=== PATIENT | male | born 1975 | race Caucasian/White ===

== ENCOUNTER → 2016-07-25 | Outpatient (CLI) | payer BC ==
[~2016-07-25] MED LIST: ASPI-461 PO; DIAZ-165 PO; GLC500 PO; LSN5 PO; SERT50TA PO; ZNTT/150 PO; [UNRECOGNIZED DRUG - REMARK] PO
--- NOTE | 2016-07-25 15:02 | DIAGNOSTIC IMAGING REPORT ---
THORACIC SPINE 3 VIEWS HISTORY: Chronic thoracic back pain. COMPARISON: None. FINDINGS: There is no fracture. No subluxation. Mild disc space narrowing within the majority of the thoracic spine. Paraspinal soft tissues are unremarkable. IMPRESSION: No fracture or subluxation within the thoracic spine. Mild degenerative disease. Electronically signed by: Gerard Soares M.D. 07/25/2016 2:59 PM Dictated Date/Time: 07/25/2016 2:57 PM
--- NOTE | 2016-07-25 15:03 | DIAGNOSTIC IMAGING REPORT ---
CERVICAL SPINE 5 VIEWS HISTORY: Neck pain. COMPARISON: None. FINDINGS: The cervical spine is visualized from C1 through the superior endplate of C7. Straightening of the cervical spine. No significant neural foraminal narrowing.. There is no fracture. No subluxation. Disc spaces are preserved. Prevertebral soft tissues and the atlantodens interval are intact. IMPRESSION: No fracture or subluxation within the cervical spine. Straightening of the cervical spine. Electronically signed by: Gerard Soares M.D. 07/25/2016 3:01 PM Dictated Date/Time: 07/25/2016 2:59 PM
== END | disposition home or self-care (01) ==
LOC: C.RAD 14:26
PROVIDERS: ATTEND Family Medicine
DX: M54.6 Pain in thoracic spine (principal)

== ENCOUNTER 2016-08-20 19:16 | Emergency (ER) | payer BC ==
[~2016-08-20] VITALS: Ht 182.9 cm; Wt 110.0 kg
[2016-08-20 19:16] VITALS: BP 130/91; PULSE 85; TEMP 36.6; O2SAT 100; Ht 182.9 cm; Wt 110.0 kg
[~2016-08-20 19:16] MED LIST changes: -ASPI-461 PO; -DIAZ-165 PO; -GLC500 PO; -LSN5 PO; -[UNRECOGNIZED DRUG - REMARK] PO
[2016-08-20] MEDS ORDERED: ASPI-461 PO (19:40)
[2016-08-20] MEDS ORDERED: GLC500 PO (19:40)
[2016-08-20] MEDS ORDERED: DIAZEPAM 5MG TAB PO STA (19:46)
[2016-08-20] MEDS ORDERED: HYDROmorphone INJ 0.5 MG/0.5 ML SYR IV STA (19:46)
[2016-08-20] MEDS ORDERED: KETOROLAC TROMETHAMINE 30 MG/ML VIAL IV STA (19:46)
[2016-08-20] MEDS ORDERED: [UNRECOGNIZED DRUG - REMARK] PO (19:55)
[2016-08-20] MEDS ORDERED: LSN5 PO (20:25)
--- NOTE | 2016-08-20 20:50 | DIAGNOSTIC IMAGING REPORT ---
THORACIC SPINE 3 VIEWS CLINICAL HISTORY: Thoracic back pain. FINDINGS: AP, lateral, and swimmer's views of the thoracic spine are compared to study dated 07/25/2016. The skeletal structures are well mineralized. There is no radiographic evidence of fracture or malalignment. Vertebral body height and alignment are maintained throughout the thoracic spine. Small anterior osteophytes are seen at the thoracolumbar junction. The transverse processes and pedicles are grossly intact and the frontal view. The intervertebral disc spaces appear maintained. Cholecystectomy clips are identified in the right or quadrant. The imaged lung parenchyma appears clear. IMPRESSION: Unremarkable radiographic assessment of the thoracic spine. Electronically signed by: Lazarus Thompson M.D. 08/20/2016 8:49 PM Dictated Date/Time: 08/20/2016 8:47 PM
--- NOTE | 2016-08-20 21:33 | EMERGENCY ROOM VISIT NOTE ---
History First contact with patient: 19:28 Chief Complaint: BACK PAIN Stated Complaint: BACK PAIN History of Present Illness The patient is a 41 year old male who presents to the Emergency Room with complaints of thoracic back pain started acutely today while doing yard work. Patient states that he bent over to pick something up and felt sudden spasms in the middle of his back. He reports ongoing issues with this back pain for the past 4 years, has recently seen his PCP regarding this and had x-rays of month ago. He has been instructed to perform physical therapy and has had 1 appointment for this. He states that this pain is worse than normal. He did not take any medication today for the pain prior to arrival. He denies any numbness, tingling, weakness of the extremities, denies any chest pain, shortness of breath, saddle numbness, bowel or bladder dysfunction. Review of Systems GENERAL: Denies fevers, chills, malaise, fatigue, unintentional weight changes. HEENT: Denies dizziness, visual problems, hearing loss, tinnitus. Denies difficulty swallowing or oral lesions. PULMONARY: Denies cough, shortness of breath, sputum production or hemoptysis. CARDIOVASCULAR: Denies chest pain, palpitations, dyspnea on exertion, orthopnea or peripheral edema. GASTROINTESTINAL: Denies diarrhea, constipation, nausea, vomiting, or abdominal pain. GENITOURINARY: Denies dysuria, frequency, urgency or nocturia. NEUROLOGIC: Denies history of epilepsy, CVA, TIA or chronic headaches. MUSCULOSKELETAL: Denies history of joint tenderness/swelling. + Chronic back pain. SKIN: Denies rashes or lesions. PSYCHIATRIC: Denies history of depression or mental illness. ENDOCRINE: Positive history of diabetes, not on insulin. Social History Smoking Status: Never Smoker Current/Historical Medications Scheduled Aspirin (Aspirin), 81 MG PO DAILY Diazepam (Valium), 5 MG PO every 6 hours Lisinopril (Lisinopril), Unknown Dose PO DAILY Metformin HCl (Metformin HCl), Unknown Dose PO DIRECTED Ranitidine (Zantac), 150 MG PO BID Sertraline (Zoloft), 50 MG PO QPM [Unknown Enzyme], 1 DOSE PO DIRECTED Allergies Coded Allergies: No Known Allergies (Verified , 08/20/16) Physical Exam Vital Signs Date Time Temp Pulse Resp B/P Pulse Ox O2 Delivery O2 Flow Rate FiO2 08/20/16 19:16 36.6 85 18 130/91 100 Room Air Physical Exam VITALS: Vitals are noted on the nurse's note and reviewed by myself. No abnormalities noted. GENERAL: Alert, in no acute distress but does appear quite uncomfortable, nondiaphoretic, well-developed well-nourished. SKIN: The skin was without rashes, erythema, edema, or bruising. HEAD: Normocephalic atraumatic. EYES: Pupils equal round and reactive to light and accommodation. The Extraocular movements intact. NECK: Supple without nuchal rigidity. No cervical spine tenderness. No paraspinous muscle tenderness. No lymphadenopathy. HEART: Regular rate and rhythm without murmurs gallops or rubs. LUNGS: Clear to auscultation bilaterally without wheezes, rales or rhonchi. ABDOMEN: Positive bowel sounds x 4. Normal tympanic percussion. Soft, nontender, without masses or organomegaly. Negative axillary or inguinal adenopathy. Huston sign negative. MUSCULOSKELETAL: No muscle atrophy, erythema, or edema noted of the back. There is moderate tenderness over the thoracic spinous processes from approximately T7 to T10. There is moderate tenderness over the paraspinous muscles within this region. There is no tenderness over the lumbar spine or paraspinous muscles. There are muscle spasms present no in the thoracic region. The patient is slow to move around with maximum tenderness with sitting forward. Negative straight leg raise test. NEURO: Patient was alert and oriented to person place and time. Normal sensation to light and sharp touch. Deep tendon reflexes 2+ in the lower extremities. Radial and Dorsalis pedis pulses 2+ bilaterally. Heel and toe walking is normal. Upper extremities 5/5 strength, normal sensation to light and sharp touch, normal imagery intelligence strength. Medical Decision & Procedures ER Provider Diagnostic Interpretation: THORACIC SPINE 3 VIEWS CLINICAL HISTORY: Thoracic back pain. FINDINGS: AP, lateral, and swimmer's views of the thoracic spine are compared to study dated 07/25/2016. The skeletal structures are well mineralized. There is no radiographic evidence of fracture or malalignment. Vertebral body height and alignment are maintained throughout the thoracic spine. Small anterior osteophytes are seen at the thoracolumbar junction. The transverse processes and pedicles are grossly intact and the frontal view. The intervertebral disc spaces appear maintained. Cholecystectomy clips are identified in the right or quadrant. The imaged lung parenchyma appears clear. IMPRESSION: Unremarkable radiographic assessment of the thoracic spine. Medications Administered Medications (Trade) Dose Ordered Sig/Ran Route Start Time Stop Time Status Last Admin Dose Admin Hydromorphone HCl (Dilaudid Inj) 0.5 mg NOW STAT IV 08/20/16 19:46 08/20/16 19:48 DC 08/20/16 20:13 0.5 MG Diazepam (Valium Tab) 10 mg NOW STAT PO 08/20/16 19:46 08/20/16 19:48 DC 08/20/16 20:13 10 MG Ketorolac Tromethamine (Toradol Inj) 15 mg NOW STAT IV 08/20/16 19:46 08/20/16 19:48 DC 08/20/16 20:13 15 MG Medical Decision CC: Patient presenting with complaint of thoracic back pain. Differential Diagnosis: Includes, but not limited to musculoskeletal back pain, muscle spasm, chronic back pain, degenerative disc disease, herniated disc, less likely fracture, I do not suspect cauda equina syndrome Summary: Patient alert and oriented, appears uncomfortable with facial grimacing and groaning with any movement. He required assistance to get out of wheelchair to the stretcher. Neurologic exam is normal, no deficits noted on exam. Patient does have midline and bilateral paraspinous tenderness of the T7 through T10 region of his thoracic spine. IV placed and medications given for pain, including IV Dilaudid, Toradol, and PO Valium. Thoracic spine x-ray done, which is unremarkable and unchanged from previous. Patient is greatly improved after medications, range of motion improved and patient has been noted to ambulate without difficulty. Patient was instructed to follow closely with his PCP and to continue with his physical therapy as ordered. Patient was instructed to take his home NSAIDs, and Rx for a few days of Valium provided for his muscle spasms. Patient verbalized understanding of discharge instructions, follow-up plan, and return precautions. Impression Primary Impression: Spasm of thoracic back muscle Departure Information Dispostion Home / Self-Care Condition GOOD Prescriptions Diazepam (Valium) 5 Mg Tab 5 MG PO every 6 hours for spasm for 3 Days, #12 TAB Prov: Aida Gutierrez, BANDING MACHINE OPERATOR 08/20/16 Referrals Stefanie Rodriguez,D.OEdilia (PCP) Patient Instructions ED Spasm Muscle, ED Sprain Thoracic Spine, [facility] Additional Instructions Follow-up with your PCP in the next few days. Take ibuprofen or Aleve for your pain. You may take the Valium as directed, as needed for muscle spasms in your back. This medication may make you drowsy, so do not drive, operate machinery, or drink alcohol while your taking it. Ice and/or heat to your back for comfort. Do not do any bending, twisting, or lifting with your back. It is important that you do stay active and do gentle stretches and exercises for your back as tolerated. Please return to the ER for any worsening symptoms, including severe intractable pain, chest pain, shortness of breath, numbness or weakness in the arms or legs, incontinence of bowel or bladder, or any other concerns. Work Instructions Return To Work: 3 days
[2016-08-20] MEDS ORDERED: DIAZ-165 PO (21:42)
== END 2016-08-20 21:58 | disposition home or self-care (01) ==
LOC: C.EDB 19:16 → C.EDD 21:58
DX: M62.830 Muscle spasm of back (principal); E11.9 Type 2 diabetes mellitus without complications; Z79.82 Long term (current) use of aspirin; Z79.899 Other long term (current) drug therapy

== ENCOUNTER → 2016-09-29 | Outpatient (CLI) | payer BC ==
[~2016-09-29] MED LIST changes: +ASPI-461 PO; +GLC500 PO; +LSN5 PO; +[UNRECOGNIZED DRUG - REMARK] PO
--- NOTE | 2016-09-29 11:33 | DIAGNOSTIC IMAGING REPORT ---
MRI THORACIC SPINE WITHOUT CLINICAL HISTORY: M54.6,M62.830 BACK PAIN, SPASMS. PRIOR STUDIES: Conventional radiographic study dated 08/20/2016 TECHNIQUE: MR scanning of the thoracic spine was performed using multiple pulse sequences. No gadolinium was administered. FINDINGS: There is a tiny left paracentral disc protrusion at the T7-8 level. Vertebral bodies are normal in height and alignment and bone marrow signal is unremarkable. The spinal cord is unremarkable. There is no evidence of spinal stenosis. IMPRESSION: Tiny left paracentral disc protrusion at the T7-8 level of questionable clinical significance. Otherwise normal study. Electronically signed by: Diallo Hilliard M.D. 09/29/2016 11:32 AM Dictated Date/Time: 09/29/2016 11:28 AM
== END | disposition home or self-care (01) ==
LOC: C.MRI 10:18
PROVIDERS: ATTEND Physical Medicine & Rehabilitation
DX: M54.6 Pain in thoracic spine (principal); M62.830 Muscle spasm of back